=== PATIENT | female | born 1960 | race Caucasian/White ===

== ENCOUNTER → 2020-02-09 09:21 | Outpatient (CLI) | payer BC, SELFPAY ==
[2020-02-09 14:13] LABS: Coronavirus 19 IgG Antibody Negative (Negative); Coronavirus 19 IgM Antibody Negative (Negative)
== END ==
PROVIDERS: Visit Provider Internal Medicine Gastroenterology
DX: Z01.818 Encounter for other preprocedural examination (principal); R10.11 Right upper quadrant pain
CPT/HCPCS: 36415; 86328

== ENCOUNTER 2020-02-10 10:49 | Day surgery (SDC) | payer BC, SELFPAY ==
[2020-02-10] VITALS (7 sets, daily range): BP systolic 107–140; BP diastolic 66–78; PULSE 75–95; RESP 16–18; TEMP 36.3–37.3; O2SAT 93–99; BMI 31.8
--- NOTE | 2020-02-10 12:09 | P.PN_ITS ---
[facility] Anesthesia Checklist - Patient Identification Patient Identification: Arm Band - Structural Data Admitted From: Home Planned Operative Procedure/s: ercp Consent for Planned Operative Procedure(s) Verified: Yes Verified Documents: Surgical Consent, History and Physical - NPO Status Verified Time NPO: 00:00 - Additional verifications Anesthesia Reactions: No - Airway Assessment C-Spine Mobility Assessed: Yes (mp2) TMJ Mobility Assessed: Yes Dentition: Good Dentition - Neurological Assessment Level of Consciousness: Awake, Alert - Anesthesia Plan Anesthesia Risk discussed: Yes Anesthesia Plan: Verified ASA Class: II Anesthesia Type: MAC [facility] History I have reviewed the patient's past medical history: Yes Medical History: Denies:: Cancer, Diabetes Mellitus Type 1, Diabetes Mellitus Type 2, Internal Pacemaker, MRSA, Seizures *Have you ever received a pneumonia vaccine?: Yes *Have you received a flu vaccine this season?: Yes Anesthesia experience/problems:: nac Other Surgeries: No: Pacemaker Amputation: No Fractures: No - *Social History Smoking Status: Current every day smoker Tobacco Type: cigarettes # Packs/Day (cigarettes): 20 Alcohol Intake: never Substance Use Type: denies use *Occupational Status:: employed Housing: house *Travel in the last 8 weeks: None Family Hx:: Unable to obtain
--- NOTE | 2020-02-10 12:30 | FL_ITS ---
PROCEDURE: FL ERCP CLINICAL INDICATION: RUQ PAIN COMPARISON: No exams were available for comparison FINDINGS: Fluoroscopy time: 1 minutes and 17 seconds Select images are submitted from the ERCP. The scope is in place on the images with contrast injected into the common bile duct showing mild dilatation of the common bile duct measuring up to approximately 8 mm. There is attenuation of the intrahepatic biliary radicles. No obvious common duct stones or other obstructing lesions are evident. The common bile duct however is not completely distended distally IMPRESSION: Mild dilatation of the common bile duct the with attenuation of the biliary radicles with incomplete filling of the distal common bile duct Dictated by: Don Becerra MD 02/14/2020 09:26 Electronically signed by Don Becerra MD in [place] 02/14/2020 09:26
--- NOTE | 2020-02-10 12:51 | P.PCN_ITS ---
[facility] Procedure Note Procedure Note:: ERCP procedure Report: Endoscopic retrograde cholangiopancreatography with biliary sphincterotomy Endoscopist: Abhishek Eastman II, MD Referring Physician: MERCEDES Noe Date of Procedure: February 10, 2020 Equipment: Olympus 180 side viewing endoscope duodenoscope Sedation: MAC sedation Indication: Mrs. Burnett is a 59-year-old female with chronic diarrhea, gassiness and bloating. 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 She does have a long history of cirrhosis and her ultrasound from January 10, 2020 showed some changes of cirrhosis. The patient also reports right upper quadrant abdominal pain that radiates into the back. She did have prior cholecystectomy. Her ultrasound did not show any biliary ductal dilation. Her recent lab work showed ALT 12, alkaline phosphatase 114 but her bilirubin was slightly elevated at 1.4. The patient's symptoms are typical of biliary colic. Procedure: Prior to the procedure, a history and physical exam was performed, and patient's medications and allergies were reviewed. The risks, benefits and alternatives of the sedation and procedure were discussed with the patient. All questions were answered and informed consent was obtained. The patient was brought to the fluoroscopic radiology room. Patient identification and proposed procedure were verified by the physician and the nurse. The patient was placed in a swimmer's position between left lateral decubitus and prone position and the scope was passed under direct vision. Throughout the procedure, the patient's blood pressure, pulse, and oxygen saturations were monitored continuously. The ERCP was accomplished without difficulty. The patient tolerated the procedure well. Findings: The duodenal side-viewing scope was passed directly into the upper esophagus and advanced to the second portion of the duodenum. There were grade 2 esophageal varices without stigmata. There was moderate portal gastropathy of the stomach. There was mild peptic duodenitis of the duodenum. The ampulla was well visualized. Both the pancreatic duct and common bile duct were cannulated with the guidewire. A pancreatogram was not performed. A cholangiogram was performed and the cholangiogram did show a mildly dilated common bile duct up to 8 mm with normal filling of the intrahepatic biliary system. There was some intrahepatic biliary attenuation which is often identified cholangiographically in persons with cirrhosis. There were no filling defects. The cystic duct stum p was identified and was normal in appearance. There were no strictures. There was delayed drainage of contrast and bile from the biliary system. 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 A generous biliary sphincterotomy was performed. There was excellent drainage of bile and contrast with decompression of the biliary system. Impression: 1. 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 I will discuss the findings with patient and family. Certainly the slightly elevated bilirubin could be in part related to hepatic impairment and cirrhosis. I do feel that her iron deficiency is related to the portal gastropathy. I would like for her to continue the spironolactone 100 mg p.o. twice daily.
== END 2020-02-10 14:00 | disposition home or self-care (01) ==
LOC: OUTP 10:52
PROVIDERS: PCP Internal Medicine; Visit Provider Internal Medicine Gastroenterology
PROC: (CPT 43262; principal; 2020-02-10 11:30)
DX: K92.89 Other specified diseases of the digestive system (principal); E74.31 Sucrase-isomaltase deficiency; K74.60 Unspecified cirrhosis of liver; Z90.49 Acquired absence of other specified parts of digestive tract; Z72.0 Tobacco use; Z79.899 Other long term (current) drug therapy
CPT/HCPCS: 43262; 74330; Q9967